=== PATIENT | female | born 1950 | race Caucasian/White ===

== ENCOUNTER 2017-02-03 07:02 | Outpatient (CLI) | payer OTHER | END 2017-02-03 07:03 | LOC: LAB 07:02 | PROVIDERS: ATTEND Family Medicine | DX: E11.9 Type 2 diabetes mellitus without complications (principal) | CPT/HCPCS: 36415; 80061; 83036 ==

== ENCOUNTER 2017-03-10 11:28 | Outpatient (CLI) | payer OTHER | END 2017-03-10 11:30 | LOC: LAB 11:28 | PROVIDERS: ATTEND Family Medicine | DX: M25.50 Pain in unspecified joint (principal) | CPT/HCPCS: 36415; 86618; 86666; 86757 ==

== ENCOUNTER 2017-03-22 11:04 | Outpatient (CLI) | payer OTHER ==
[2017-03-22 11:24] LABS: BASOPHILS % 0.6 (0.0-1.5); EOSINOPHILS % 1.8 % (0.0-6.8); MEAN CORPUSCULAR HEMOGLOBIN 28.8 pg (28.0-34.0); MEAN CORPUSCULAR VOLUME 86.8 fl (80.0-100.0); MONOCYTES % 3.9 % (0.0-11.0); NEUTROPHILS # 6.3 # k/uL (1.4-7.7)
[2017-03-22 11:52] LABS: eGFR (African) > 60; eGFR (Non-African) > 60
== END 2017-03-22 11:05 ==
LOC: LAB 11:04
PROVIDERS: ATTEND Family Medicine
DX: R21 Rash and other nonspecific skin eruption (principal); R53.83 Other fatigue
CPT/HCPCS: 36415; 80053; 85025; 85651; 86140; 86431; 86747

== ENCOUNTER 2017-08-24 13:22 | Outpatient (CLI) | payer OTHER ==
--- NOTE | 2017-08-24 15:37 | Diagnostic Imaging Report ---
JOSE RAMON FABIAN [facility] [id number] [facility] [address] [place], [place]. [address] Report Submission Date: Aug 24, 2017 2:04:25 PM TRAINER Patient Study Name: HERIBERTO AVILA Date: Aug 24, 2017 1:38:15 PM TRAINER Modality Type: CR Gender: F Description: CHEST : 52 Institution: [facility] Physician: JOSE RAMON FABIAN Examination: PA and lateral chest. History: Evaluate lung navas. Comparison exam: None provided. Findings: PA lateral chest demonstrate a normal cardiac and mediastinal silhouette. No focal infiltrate. No blunting of the costophrenic margins. Osseous structures are appropriate for age. Fixation screw within the region of the right scapula. Impression: No acute pulmonary process. Electronically signed on Aug 24, 2017 2:04:25 PM TRAINER by: Rogerio LAN
== END 2017-08-24 13:30 ==
LOC: LAB 13:22
PROVIDERS: ATTEND Family Medicine
DX: E11.9 Type 2 diabetes mellitus without complications (principal); M54.9 Dorsalgia, unspecified
CPT/HCPCS: 36415; 71020; 83036

== ENCOUNTER 2018-01-17 09:52 | Outpatient (CLI) | payer OTHER ==
[2018-01-17 10:22] LABS: MEAN CORPUSCULAR HEMOGLOBIN 24.3 pg (28.0-34.0); MEAN CORPUSCULAR VOLUME 81.5 fl (80.0-100.0)
[2018-01-17 10:37] LABS: eGFR (African) > 60; eGFR (Non-African) > 60
--- NOTE | 2018-01-17 11:12 | Diagnostic Imaging Report ---
MISTI ENNIS [facility] [id number] [facility] [address] [place], [place]. [address] Report Submission Date: January 17, 2018 11:06:42 AM CDT Patient Study Name: HERIBERTO AVILA Date: January 17, 2018 10:29:09 AM CDT Modality Type: DX Gender: F Description: CHEST : 52 Institution: [facility] Physician: MISTI ENNIS Examination: PA and lateral chest. History: PT C/O SOA WITH UPPER BODY EXERTION X SEVERAL MONTHS. NONSMOKER (Hx) Comparison exam: 24 August 2017 Findings: PA lateral chest demonstrate a normal cardiac and mediastinal silhouette. No focal infiltrate. No blunting of the costophrenic margins. Osseous structures are appropriate for age. Right shoulder fixation screw. Impression: No acute pulmonary process. Electronically signed on January 17, 2018 11:06:42 AM CDT by: Rogerio LAN
== END 2018-01-17 09:53 ==
LOC: LAB 09:52
PROVIDERS: ATTEND Family Medicine
DX: E11.9 Type 2 diabetes mellitus without complications (principal); R06.02 Shortness of breath; E55.9 Vitamin D deficiency, unspecified
CPT/HCPCS: 36415; 71046; 80053; 80061; 82306; 83036; 85027; 85379

== ENCOUNTER 2018-01-19 10:37 | Outpatient (CLI) | payer OTHER | END 2018-01-19 10:40 | LOC: RT 10:37 | PROVIDERS: ATTEND Family Medicine | DX: R06.02 Shortness of breath (principal) ==

== ENCOUNTER 2018-05-18 14:17 | Outpatient (CLI) | payer OTHER | END 2018-05-18 14:20 | LOC: LAB 14:17 | PROVIDERS: ATTEND Family Medicine | DX: E55.9 Vitamin D deficiency, unspecified (principal); R53.83 Other fatigue | CPT/HCPCS: 36415; 82306; 84443 ==

== ENCOUNTER 2018-08-10 08:10 | Outpatient (CLI) | payer OTHER ==
[2018-08-10 08:53] LABS: eGFR (Non-African) > 60
== END 2018-08-10 08:11 ==
LOC: LAB 08:10
PROVIDERS: ATTEND Family Medicine
DX: E11.9 Type 2 diabetes mellitus without complications (principal); E55.9 Vitamin D deficiency, unspecified
CPT/HCPCS: 36415; 80053; 80061; 82306; 83036

== ENCOUNTER 2019-03-15 12:31 | Outpatient (CLI) | payer OTHER ==
[2019-03-15 13:01] LABS: eGFR (Non-African) > 60
[2019-03-15 13:02] LABS: A1C 7.4 % (<5.7); HDL 59 mg/dL (>40)
== END 2019-03-15 12:33 ==
LOC: LAB 12:31
PROVIDERS: ATTEND Family Medicine
DX: E11.9 Type 2 diabetes mellitus without complications (principal)
CPT/HCPCS: 36415; 80053; 80061; 82306; 83036